=== PATIENT | female | born 1945 | race Caucasian/White ===

== ENCOUNTER 2024-12-14 10:15 | Emergency (ER) | payer MEDICARE ==
[~2024-12-14] VITALS: Ht 165.1 cm; Wt 82.1 kg
== END 2024-12-14 11:37 | disposition home or self-care (01) ==
LOC: ED 10:15
DX: S00.83XA Contusion of other part of head, initial encounter (principal); Z88.6 Allergy status to analgesic agent; Z88.5 Allergy status to narcotic agent; Z88.8 Allergy status to other drugs, medicaments and biological substances; W07.XXXA Fall from chair, initial encounter; Y93.89 Activity, other specified; Y92.89 Other specified places as the place of occurrence of the external cause; Y99.8 Other external cause status

== ENCOUNTER 2025-03-17 07:06 | Emergency (ER) | payer MEDICARE ==
[~2025-03-17] VITALS: Ht 167.6 cm; Wt 81.6 kg
== END 2025-03-17 09:58 | disposition home or self-care (01) ==
LOC: ED 07:06
DX: S09.8XXA Other specified injuries of head, initial encounter (principal); I10 Essential (primary) hypertension; E78.5 Hyperlipidemia, unspecified; F03.90 Unspecified dementia, unspecified severity, without behavioral disturbance, psychotic disturbance, mood disturbance, and anxiety; Z88.5 Allergy status to narcotic agent; Z88.8 Allergy status to other drugs, medicaments and biological substances; W18.39XA Other fall on same level, initial encounter; Y93.89 Activity, other specified; Y92.89 Other specified places as the place of occurrence of the external cause; Y99.8 Other external cause status